=== PATIENT | male | born 1975 | race African-American/Black ===

== ENCOUNTER → 2016-12-25 | Outpatient (CLI) | payer OTHER | LOC: OD 14:55 | PROVIDERS: ATTEND Physician Assistant | DX: M79.642 Pain in left hand (principal) ==

== ENCOUNTER → 2017-01-04 | Outpatient (CLI) | payer OTHER | LOC: OD 11:35 | PROVIDERS: ATTEND Physician Assistant | DX: M79.642 Pain in left hand (principal) ==

== ENCOUNTER → 2017-04-30 | Outpatient (CLI) | payer OTHER ==
--- NOTE | 2017-04-30 16:48 | RADIOLOGY REPORT (SQ) ---
EXAM DESCRIPTION: KNEE RIGHT 4 VIEWS COMPLETED DATE/TIME: 04/30/2017 4:39 pm REASON FOR STUDY: PAIN IN RIGHT KNEE M25.561 PAIN IN RIGHT KNEE COMPARISON: None. NUMBER OF VIEWS: Four views. TECHNIQUE: AP, lateral, and both oblique radiographic images acquired of the right knee. LIMITATIONS: None. FINDINGS: MINERALIZATION: Normal. BONES: No acute fracture or dislocation. Minimal medial joint space narrowing with small osteophytes . Subtle radiolucency in the subcortical articular surface of the medial femoral condyle. JOINT: No effusion. No chondrocalcinosis. OTHER: No other significant finding. IMPRESSION: MINIMAL DEGENERATIVE CHANGE. THERE IS SUBTLE RADIOLUCENCY IN THE MEDIAL FEMORAL CONDYLE S WHICH COULD INDICATE AN OSTEOCHONDRAL INJURY OR LESION. RECOMMEND FOLLOW-UP WITH MRI OF THE KNEE. TECHNICAL DOCUMENTATION: JOB ID: [id number]- All Rights Reserved
== END ==
LOC: OD 16:24
PROVIDERS: ATTEND Nurse Practitioner Acute Care
DX: M25.561 Pain in right knee (principal)

== ENCOUNTER 2017-06-18 11:01 | Day surgery (SDC) | payer OTHER ==
[~2017-06-18 11:01] MED LIST: PROPOFOL INJ 200 MG/20 ML VIAL IV ONE
[2017-06-18 13:27] VITALS: BP 116/99
--- NOTE | 2017-06-18 14:00 | Operative Report ---
Operative Report DATE OF SURGERY: 06/18/17 Operative Report: The risks, benefits and alternatives of the procedure including risks of bleeding, perforation requiring surgery are explained to the patient detail and informed consent was obtained. Patient was taken back to the endoscopy suite and placed in the left, lateral decubital position. Timeout was called. Propofol medications administered. A rectal examination was done which did not reveal any masses, tears or fissures. An Olympus video scope was inserted into the patient's rectum. The scope was then gradually advanced all the way to the cecum. The cecum was identified by the usual anatomical landmarks including the ileocecal valve as well as the appendiceal office. Photodocumentation is obtained. The scope was then sequentially pulled back via the various segments of the colon including the ascending colon, hepatic flexure, transverse colon, splenic flexure, descending colon and finding to the rectosigmoid portions of the colon. Retroflexion maneuver was performed. PREOPERATIVE DIAGNOSIS: Change in bowel habits POSTOPERATIVE DIAGNOSIS: Mild irritation noted in the rectum, nonspecific proctitis. Internal hemorrhoids OPERATION: Colonoscopy with biopsy SURGEON: KATY CHANDLER ANESTHESIA: LMAC TISSUE REMOVED OR ALTERED: Specimen obtained in the rectal mucosa. COMPLICATIONS: None. ESTIMATED BLOOD LOSS: None. INTRAOPERATIVE FINDINGS: No masses, AVMs, diverticulosis noted. PROCEDURE: Patient tolerated procedure well. No immediate postprocedure complications are noted. Patient discharged in good condition. Discharge date 06/18/2017. Discharge diet: Regular. Discharge activity: Regular. 2-3 week follow-up to discuss findings. Normal surveillance colonoscopy at age 50. Patient is instructed to call the office or proceed to the emergency room should there be any further problems or questions. We will wait on biopsy.
== END 2017-06-18 13:25 | disposition home or self-care (01) ==
LOC: END 11:01
PROVIDERS: ATTEND Internal Medicine Gastroenterology
PROC: 0DBP8ZX Excision of Rectum, Via Natural or Artificial Opening Endoscopic, Diagnostic (ICD-10-PCS; principal; 2017-06-18 14:00)
DX: K64.8 Other hemorrhoids (principal); K62.89 Other specified diseases of anus and rectum; K21.9 Gastro-esophageal reflux disease without esophagitis; E66.9 Obesity, unspecified; Z79.899 Other long term (current) drug therapy; Z68.41 Body mass index [BMI] 40.0-44.9, adult
CPT/HCPCS: 45380; 88305 ×2; J2704; 810

== ENCOUNTER 2017-06-30 08:15 | Emergency (ER) | payer OTHER ==
[2017-06-30] MEDS ORDERED: INSULIN REG, HUMAN 100 UNIT/ML 3 ML VIAL (PYX) SUBCUT ONE ×2 (08:44→11:43)
--- NOTE | 2017-06-30 08:53 | ER Document Report ---
ED General - General Chief Complaint: High Blood Sugar Stated Complaint: BLOOD SUGAR PROBLEMS Time Seen by Provider: 06/30/17 08:28 Mode of Arrival: Ambulatory Information source: Patient Notes: 41 yr old male recently diagnosed as diabetic , placed on metformin and 70/30 lantus . Pt admits to high blood sugar, not feeling well. pts accuchek 468. TRAVEL OUTSIDE OF THE [place] IN LAST 30 DAYS: No - HPI Onset: Other Onset/Duration: Persistent Quality of pain: No pain Severity: Moderate Pain Level: Denies Associated symptoms: Nausea, Vomiting Exacerbated by: Denies Relieved by: Denies Similar symptoms previously: Yes Recently seen / treated by doctor: Yes - Related Data Allergies/Adverse Reactions: No Known Allergies Allergy (Verified 06/18/17 11:45) Past Medical History - Social History Smoking Status: Never Smoker Cigarette use (# per day): No Chew tobacco use (# tins/day): No Smoking Education Provided: No Family History: Reviewed & Not Pertinent - Past Medical History Cardiac Medical History: Denies: Hx Coronary Artery Disease, Hx Heart Attack, Hx Hypertension Pulmonary Medical History: Denies: Hx Asthma, Hx Bronchitis, Hx COPD, Hx Pneumonia Neurological Medical History: Denies: Hx Cerebrovascular Accident, Hx Seizures Renal/ Medical History: Denies: Hx Peritoneal Dialysis Musculoskeltal Medical History: Reports Hx Arthritis - Immunizations Hx Diphtheria, Pertussis, Tetanus Vaccination: No Review of Systems - Review of Systems Notes: REVIEW OF SYSTEMS: CONSTITUTIONAL : Denies fever, chills, or sweats. Denies recent illness. EENT: Denies eye, ear, throat, or mouth pain or symptoms. Denies nasal or sinus congestion or discharge. Denies throat, tongue, or mouth swelling or difficulty swallowing. CARDIOVASCULAR: Denies chest pain. Denies palpitations or racing or irregular heart beat. Denies ankle edema. RESPIRATORY: Denies cough, cold, or chest congestion. Denies shortness of breath, difficulty breathing, or wheezing. GASTROINTESTINAL: Admits nausea GENITOURINARY: Denies difficulty urinating, painful urination, burning, frequency, blood in urine, or discharge. MUSCULOSKELETAL: Denies back or neck pain or stiffness. Denies joint pain or swelling. SKIN: Denies rash, lesions or sores. HEMATOLOGIC : Denies easy bruising or bleeding. LYMPHATIC: Denies swollen, enlarged glands. NEUROLOGICAL: Denies confusion or altered mental status. Denies passing out or loss of consciousness. Denies dizziness or lightheadedness. Denies headache. Denies weakness or paralysis or loss of use of either side. Denies problems with gait or speech. Denies sensory loss, numbness, or tingling. Denies seizures. PSYCHIATRIC: Denies anxiety or stress. Denies depression, suicidal ideation, or homicidal ideation. ALL OTHER SYSTEMS REVIEWED AND NEGATIVE. Dictation was performed using [employer] voice recognition software PHYSICAL EXAMINATION: GENERAL: Well-appearing, well-nourished and in no acute distress. HEAD: Atraumatic, normocephalic. EYES: Pupils equal round and reactive to light, extraocular movements intact, sclera anicteric, conjunctiva are normal. ENT: Nares patent, oropharynx clear without exudates. Moist mucous membranes. NECK: Normal range of motion, supple without lymphadenopathy LUNGS: Breath sounds clear to auscultation bilaterally and equal. No wheezes rales or rhonchi. HEART: Slightly tachycardic ABDOMEN: Soft, nontender, nondistended abdomen. No guarding, no rebound. No masses appreciated. Musculoskeletal: Normal range of motion, no pitting or edema. No cyanosis. NEUROLOGICAL: Cranial nerves grossly intact. Normal speech, normal gait. Normal sensory, motor exams PSYCH: Normal mood, normal affect. SKIN: Warm, Dry, normal turgor, no rashes or lesions noted. Physical Exam - Vital signs Vitals: Temp Pulse Resp BP Pulse Ox 97.6 F 105 H 14 137/79 H 96 06/30/17 08:19 06/30/17 08:19 06/30/17 08:19 06/30/17 08:19 06/30/17 08:19 Course - Re-evaluation Re-evalutation: 06/30/17 08:52 Concern is if patient is in DKA at this time, lab work pending insulin IV fluids have been ordered Patient's hemoglobin A1c is noted to be 12.3 06/30/17 13:[address] Nick who requests 1000mg metformin bid, glipizide 10 mb bid will dc patient home on this recommendation and follow up with endocrinology 06/30/17 15:10 Patient given education on diabetes 06/30/17 15:14 Patient's otherwise stable will discharge home at this time After performing a Medical Screening Examination, I estimate there is LOW risk for INTRACRANIAL HEMORRHAGE, ISCHEMIC CVA, MALIGNANT DYSRHYTHMIA, ACUTE CORONARY SYNDROME, MENINGITIS, PULMONARY EMBOLISM, or SEPSIS thus I consider the discharge disposition reasonable. I have reevaluated this patient multiple times and no significant life threatening changes are noted. The patient and I have discussed the diagnosis and risks, and we agree with discharging home with close follow-up with the understanding that symptoms and presentations can change. We also discussed returning to the Emergency Department immediately if new or worsening symptoms occur. We have discussed the symptoms which are most concerning (e.g., changing or worsening pain, weakness, vomiting, fever) that necessitate immediate return. - Vital Signs Vital signs: Temp Pulse Resp BP Pulse Ox 97.6 F 105 H 20 120/64 94 06/30/17 08:19 06/30/17 08:19 06/30/17 13:01 06/30/17 13:01 06/30/17 13:01 - Laboratory Result Diagrams: 06/30/17 08:55 06/30/17 08:55 Laboratory results interpreted by me: 06/30/17 06/30/17 06/30/17 08:55 09:14 09:55 Glucose 486 H* POC Glucose 393 H Urine Glucose (UA) >=500 H Urine Ketones 80 H 06/30/17 06/30/17 11:42 13:14 Glucose POC Glucose 387 H 323 H Urine Glucose (UA) Urine Ketones Critical Care Note - Critical Care Note Total time excluding time spent on procedures (mins): 34 Comments: 34 minutes of critical care time spent in direct contact evaluating and reevaluating the patient, treating symptoms, reviewing labs and studies and speaking with family and consultants excluding any procedures Discharge - Discharge Clinical Impression: Hyperglycemia, Dizziness Condition: Stable Disposition: HOME, SELF-CARE Additional Instructions: Please follow-up with room clerk provide to your return immediately if there are any other concerns Prescriptions: Glipizide 10 mg PO BID #60 tablet Referrals: RICCI VÁZQUEZ NP [Primary Care Provider] - Follow up as needed
[2017-06-30] MEDS: NORMAL SALINE 1000 ML 1,000 ML IV PRN ×2 (08:55→09:57)
[2017-06-30 09:05] LABS: ABSOLUTE BASOPHILS # (AUTO) 0.1 10^3/uL (0.0-0.2); ABSOLUTE EOSINOPHILS # (AUTO) 0.1 10^3/uL (0.0-0.6); ABSOLUTE LYMPHOCYTES (AUTO) 2.4 10^3/uL (0.5-4.7); ABSOLUTE NEUT (AUTO) 4.5 10^3/uL (1.7-8.2); BASOPHILS % (AUTO) 1.2 % (0-2); EOSINOPHILS % (AUTO) 1.7 % (0-6); HEMATOCRIT 45.8 % (37.9-51.0); HEMOGLOBIN 15.2 g/dL (13.5-17.0); HGB HCT DIFFERENCE -0.2; LYMPHOCYTES % (AUTO) 29.5 % (13-45); MEAN CORPUSCULAR HEMOGLOBIN 28.8 pg (27.0-33.4); MEAN CORPUSCULAR HGB CONC 33.2 g/dL (32.0-36.0); MEAN CORPUSCULAR VOLUME 87 fl (80-97); MONOCYTES % (AUTO) 12.1 % (3-13); RED CELL DISTRIBUTION WIDTH 13.4 % (11.5-14.0); SEGMENTED NEUTROPHILS % (AUTO) 55.5 % (42-78)
[2017-06-30 09:17] LABS: VENOUS BLOOD BASE EXCESS -2.2 mmol/L; VENOUS BLOOD HCO3 23.9 mmol/L (20-32); VENOUS BLOOD PCO2 45.6 mmHg (35-63); VENOUS BLOOD PH 7.34 (7.30-7.42)
[2017-06-30 09:22] LABS: ALANINE AMINOTRANSFERASE 60 U/L (21-72); ALBUMIN 4.3 g/dL (3.5-5.0); ALKALINE PHOSPHATASE 117 U/L (38-126); ANION GAP 15 (5-19); ASPARTATE AMINO TRANSFERASE 29 U/L (17-59); BILIRUBIN,DIRECT 0.4 mg/dL (0.0-0.4); BLOOD UREA NITROGEN 14 mg/dL (7-20); CALCIUM 10.2 mg/dL (8.4-10.2); CARBON DIOXIDE 24 mmol/L (22-30); CHLORIDE 101 mmol/L (98-107); CREATININE RESULT 1.22 mg/dL (0.52-1.25); POTASSIUM 4.6 mmol/L (3.6-5.0); SODIUM 139.7 mmol/L (137-145); TOTAL PROTEIN 7.5 g/dL (6.3-8.2)
[2017-06-30 09:30] LABS: GLUCOSE 486 mg/dL (75-110)
[2017-06-30 09:40] LABS: APPEARANCE,URINE CLEAR; BILIRUBIN,URINE NEGATIVE (NEGATIVE); GLUCOSE, URINE >=500 mg/dL (NEGATIVE); KETONES,URINE 80 mg/dL (NEGATIVE); LEUKOCYTE ESTERASE,URINE NEGATIVE (NEGATIVE); NITRITE,URINE NEGATIVE (NEGATIVE); PROTEIN,URINE NEGATIVE (NEGATIVE); URINE SPECIFIC GRAVITY 1.022; UROBILINOGEN,URINE NEGATIVE mg/dL (<2.0)
[2017-06-30] MEDS ORDERED: METFORMIN HCL 500 MG TABLET PO ONE (15:09)
[2017-06-30 15:47] VITALS: BP 112/65
== END 2017-06-30 15:58 | disposition home or self-care (01) ==
LOC: ER 08:15
DX: E11.65 Type 2 diabetes mellitus with hyperglycemia (principal); R42 Dizziness and giddiness; Z79.4 Long term (current) use of insulin
CPT/HCPCS: 99285; 36415; 82962; 85025; 80053; 81001; 82803; J1815; J7030

== ENCOUNTER 2019-07-30 13:43 | Emergency (ER) | payer OTHER ==
--- NOTE | 2019-07-30 14:23 | ER Document Report ---
ED Medical Screen (RME) - General Chief Complaint: High Blood Sugar Stated Complaint: BLOOD SUGAR ISSUES Time Seen by Provider: 07/30/19 14:18 Primary Care Provider: RICCI VÁZQUEZ NP [Primary Care Provider] - Follow up as needed Mode of Arrival: Ambulatory Information source: Patient Notes: 42-year-old male presented to ED for uncontrolled diabetes type 2. He states he is on metformin which makes him extremely sick and does not take it properly. He states he was recently started on glipizide but does not help with his sugars stay under control. He states he cannot get his sugar under 200. 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 Patient is alert oriented respirations regular and unlabored speaking in full sentences walks with even steady gait. I have greeted and performed a rapid initial assessment of this patient. A comprehensive ED assessment and evaluation of the patient, analysis of test results and completion of medical decision making process will be conducted by an additional ED providers. TRAVEL OUTSIDE OF THE [place] IN LAST 30 DAYS: No - Related Data Allergies/Adverse Reactions: No Known Allergies Allergy (Verified 06/18/17 11:45) Past Medical History - Past Medical History Cardiac Medical History: Denies: Hx Coronary Artery Disease, Hx Heart Attack, Hx Hypertension Pulmonary Medical History: Denies: Hx Asthma, Hx Bronchitis, Hx COPD, Hx Pneumonia Neurological Medical History: Denies: Hx Cerebrovascular Accident, Hx Seizures Endocrine Medical History: Reports: Hx Diabetes Mellitus Type 2 Renal/ Medical History: Denies: Hx Peritoneal Dialysis Musculoskeltal Medical History: Reports Hx Arthritis Past Surgical History: Reports: Hx Appendectomy - Immunizations Hx Diphtheria, Pertussis, Tetanus Vaccination: No Physical Exam - Vital signs Vitals: Temp Pulse Resp BP Pulse Ox 98.6 F 101 H 20 131/77 H 96 07/30/19 13:47 07/30/19 13:47 07/30/19 13:47 07/30/19 13:47 07/30/19 13:47 Course - Vital Signs Vital signs: Temp Pulse Resp BP Pulse Ox 98.6 F 101 H 20 131/77 H 96 07/30/19 13:47 07/30/19 13:47 07/30/19 13:47 07/30/19 13:47 07/30/19 13:47 Doctor's Discharge - Discharge Referrals: RICCI VÁZQUEZ NP [Primary Care Provider] - Follow up as needed
[2019-07-30 16:03] LABS: ABSOLUTE BASOPHILS # (AUTO) 0.1 10^3/uL (0.0-0.2); ABSOLUTE EOSINOPHILS # (AUTO) 0.1 10^3/uL (0.0-0.6); ABSOLUTE MONOCYTES (AUTO) 0.7 10^3/uL (0.1-1.4); EOSINOPHILS % (AUTO) 1.3 % (0-6); HEMATOCRIT 46.8 % (37.9-51.0); HEMOGLOBIN 15.5 g/dL (13.5-17.0); LYMPHOCYTES % (AUTO) 37.9 % (13-45); MEAN CORPUSCULAR HEMOGLOBIN 27.6 pg (27.0-33.4); MEAN CORPUSCULAR HGB CONC 33.1 g/dL (32.0-36.0); MEAN CORPUSCULAR VOLUME 83 fl (80-97); MONOCYTES % (AUTO) 8.6 % (3-13); PLATELET COUNT 270 10^3/uL (150-450); RED BLOOD COUNT 5.61 10^6/uL (4.35-5.55); RED CELL DISTRIBUTION WIDTH 13.7 % (11.5-14.0); SEGMENTED NEUTROPHILS % (AUTO) 51.2 % (42-78); TOTAL CELLS COUNTED % (AUTO) 100 %; WHITE BLOOD COUNT 7.9 10^3/uL (4.0-10.5)
[2019-07-30 16:06] LABS: VENOUS BLOOD BASE EXCESS -0.1 mmol/L; VENOUS BLOOD PCO2 47.2 mmHg (35-63); VENOUS BLOOD PH 7.36 (7.30-7.42)
[2019-07-30 16:10] LABS: APPEARANCE,URINE CLEAR; BILIRUBIN,URINE NEGATIVE (NEGATIVE); COLOR,URINE YELLOW; GLUCOSE, URINE >=500 mg/dL (NEGATIVE); KETONES,URINE NEGATIVE (NEGATIVE); LEUKOCYTE ESTERASE,URINE NEGATIVE (NEGATIVE); NITRITE,URINE NEGATIVE (NEGATIVE); PROTEIN,URINE NEGATIVE (NEGATIVE); URINE SPECIFIC GRAVITY 1.013; UROBILINOGEN,URINE NEGATIVE mg/dL (<2.0)
[2019-07-30] MEDS ORDERED: INSULIN REG, HUMAN 100 UNIT/ML 3 ML VIAL (PYX) IV ONE (17:59)
--- NOTE | 2019-07-30 17:59 | ER Document Report ---
ED General - General Chief Complaint: High Blood Sugar Stated Complaint: BLOOD SUGAR ISSUES Time Seen by Provider: 07/30/19 14:18 Primary Care Provider: RICCI VÁZQUEZ, JANETTE [NURSE PRACTITIONER] - Follow up as needed Mode of Arrival: Ambulatory TRAVEL OUTSIDE OF THE [place] IN LAST 30 DAYS: No - HPI Patient complains to provider of: hyperglycemia Notes: 43-year-old diabetic male presents with high blood sugar at home greater than 200. This been going on for 2 to 3 days per the patient. This is not normal. Patient is not on insulin. Patient takes glipizide and metformin. Patient has not been tolerating his oral metformin well with great deal of GI upset. Stopped taking approximately 2 weeks ago. Patient denies nausea vomiting fever chills polyuria polydipsia. He is just concerned because he cannot get his blood sugar down. - Related Data Allergies/Adverse Reactions: metformin Adverse Reaction (Verified 07/30/19 18:23) Past Medical History - General Information source: Patient - Social History Smoking Status: Unknown if Ever Smoked Family History: Reviewed & Not Pertinent - Past Medical History Cardiac Medical History: Denies: Hx Coronary Artery Disease, Hx Heart Attack, Hx Hypertension Pulmonary Medical History: Denies: Hx Asthma, Hx Bronchitis, Hx COPD, Hx Pneumonia Neurological Medical History: Denies: Hx Cerebrovascular Accident, Hx Seizures Endocrine Medical History: Reports: Hx Diabetes Mellitus Type 2 Renal/ Medical History: Denies: Hx Peritoneal Dialysis Musculoskeletal Medical History: Reports Hx Arthritis Past Surgical History: Reports: Hx Appendectomy - Immunizations Hx Diphtheria, Pertussis, Tetanus Vaccination: No Review of Systems - Review of Systems Notes: REVIEW OF SYSTEMS: CONSTITUTIONAL: -fevers, -chills EENT: -eye pain, -difficulty swallowing, -nasal congestion CARDIOVASCULAR: -chest pain, -syncope. RESPIRATORY: -cough, -SOB GASTROINTESTINAL: -abdominal pain, -nausea, -vomiting, -diarrhea GENITOURINARY: -dysuria, -hematuria MUSCULOSKELETAL: -back pain, -neck pain SKIN: -rash or skin lesions. HEMATOLOGIC: -easy bruising or bleeding. LYMPHATIC: -swollen, enlarged glands. NEUROLOGICAL: -altered mental status or loss of consciousness, -headache, - neurologic symptoms PSYCHIATRIC: -anxiety, -depression. ALL OTHER SYSTEMS REVIEWED AND NEGATIVE. Physical Exam - Vital signs Vitals: Temp Pulse Resp BP Pulse Ox 98.6 F 101 H 20 131/77 H 96 07/30/19 13:47 07/30/19 13:47 07/30/19 13:47 07/30/19 13:47 07/30/19 13:47 - Notes Notes: PHYSICAL EXAMINATION: GENERAL: Well-appearing, well-nourished and in no acute distress. HEAD: Atraumatic, normocephalic. EYES: Pupils equal round and reactive to light, extraocular movements intact, sclera anicteric, conjunctiva are normal. ENT: nares patent, oropharynx clear without exudates. Moist mucous membranes. NECK: Normal range of motion, supple without lymphadenopathy LUNGS: Breath sounds clear to auscultation bilaterally and equal. No wheezes rales or rhonchi. HEART: Regular rate and rhythm without murmurs ABDOMEN: Soft, nontender, normoactive bowel sounds. No guarding, no rebound. No masses appreciated. EXTREMITIES: Normal range of motion, no pitting or edema. No cyanosis. NEUROLOGICAL: Cranial nerves grossly intact. Normal speech, normal gait. Normal sensory and motor exams. PSYCH: Normal mood, normal affect. SKIN: Warm, Dry, normal turgor, no rashes or lesions noted. Course - Re-evaluation Re-evalutation: 07/30/19 18:05 43-year-old male presents with asymptomatic hyperglycemia. Will initiate 2 L fluid resuscitation. Extensive lab work will be checked. IV insulin will be given emergently. 07/31/19 06:47 Patient's potassium greater than 3.3. Initiate insulin therapy. Patient given fluid and 10 units regular insulin. Patient feeling markedly improved. Blood glucose improved. Patient be discharged home follow-up PCP - Vital Signs Vital signs: Temp Pulse Resp BP Pulse Ox 97.8 F 88 18 136/85 H 97 07/30/19 19:06 07/30/19 19:06 07/30/19 19:06 07/30/19 19:06 07/30/19 19:06 - Laboratory Result Diagrams: 07/30/19 15:44 07/30/19 18:25 Laboratory results interpreted by me: 07/30/19 07/30/19 07/30/19 15:30 15:44 15:44 RBC 5.61 H Glucose POC Glucose 269 H Hemoglobin A1c % 11.2 H Urine Glucose (UA) 07/30/19 07/30/1907/30/19 15:44 18:09 18:25 RBC Glucose 189 H POC Glucose 220 H Hemoglobin A1c % Urine Glucose (UA) >=500 H Discharge - Discharge Clinical Impression: Hyperglycemia Condition: Stable Disposition: HOME, SELF-CARE Instructions: Hyperglycemia ([facility]) Forms: Return to Work Referrals: RICCI VÁZQUEZ, FORMULA ROOM WORKER [NURSE PRACTITIONER] - Follow up as needed
[2019-07-30] MEDS: NORMAL SALINE 1000 ML 1,000 ML IV PRN ×2 (18:17→18:19)
[2019-07-30 19:06] VITALS: BP 136/85
[2019-07-30 19:10] LABS: ALBUMIN 3.8 g/dL (3.5-5.0); ALKALINE PHOSPHATASE 81 U/L (38-126); ANION GAP 7 (5-19); ASPARTATE AMINO TRANSFERASE 25 U/L (17-59); BILIRUBIN,DIRECT 0.1 mg/dL (0.0-0.4); BILIRUBIN,TOTAL 0.5 mg/dL (0.2-1.3); BLOOD UREA NITROGEN 14 mg/dL (7-20); CALCIUM 9.3 mg/dL (8.4-10.2); CARBON DIOXIDE 27 mmol/L (22-30); CHLORIDE 104 mmol/L (98-107); GLUCOSE 189 mg/dL (75-110); POTASSIUM 3.7 mmol/L (3.6-5.0); TOTAL PROTEIN 6.5 g/dL (6.3-8.2)
== END 2019-07-30 19:07 | disposition home or self-care (01) ==
LOC: ER 13:43
DX: E11.65 Type 2 diabetes mellitus with hyperglycemia (principal); Z79.84 Long term (current) use of oral hypoglycemic drugs
CPT/HCPCS: 36415; 82962; 85025; 80053; 81001; 83036; 82803; J1815; J7030

== ENCOUNTER → 2020-07-02 | Outpatient (CLI) | payer OTHER ==
--- NOTE | 2020-07-02 17:15 | RADIOLOGY REPORT (SQ) ---
EXAM DESCRIPTION: KNEE LEFT 4 VIEWS IMAGES COMPLETED DATE/TIME: 07/02/2020 4:50 pm REASON FOR STUDY: LEFT ANTERIOR KNEE PAIN M25.562 PAIN IN LEFT KNEE COMPARISON: None. NUMBER OF VIEWS: Four views. TECHNIQUE: AP, lateral, and both oblique radiographic images acquired of the left knee. LIMITATIONS: None. FINDINGS: MINERALIZATION: Normal. BONES: No acute fracture or dislocation. No worrisome bone lesions. JOINT: No effusion. SOFT TISSUES: No soft tissue swelling. No radio-opaque foreign body. OTHER: No other significant finding. IMPRESSION: NEGATIVE STUDY OF THE LEFT KNEE. NO RADIOGRAPHIC EVIDENCE OF ACUTE INJURY. TECHNICAL DOCUMENTATION: JOB ID: [id number] 2010 [employer]- All Rights Reserved Reading location - IP/workstation name: [email or web address]
== END ==
LOC: RAD 16:26
PROVIDERS: ATTEND Family Medicine
DX: M25.562 Pain in left knee (principal)